=== PATIENT | female | born 1955 | race Caucasian/White ===

== ENCOUNTER 2020-03-31 09:38 | Inpatient (IN) | payer MEDICAID ==
[~2020-03-31] VITALS: Ht 154.9 cm; Wt 65.3 kg
[~2020-03-31 09:38] MED LIST: ACCU MC; ASPI-1886 PO; BENA5TAB13 PO; CHOL20001 PO; CLOP75TA PO; DYR50 PO; FURO-570 IVP; GLIP10TA3 PO; ISOS20TA13 PO; LIP80 PO; METF1000 PO; METF500T PO; METO-251 PO; NOVR SUBQ; ONDA-24 IVP
--- NOTE | 2020-03-31 09:38 | NUR ---
Patient BIBA ALS, transferred to bed 8. RN evaluating patient at bedside.
[2020-03-31 09:49] VITALS: BP 233/95
--- NOTE | 2020-03-31 09:49 | NUR ---
20G IV PLACED TO RT AC, BLOOD CULTURES AND LABS DRAWN AT THIS TIME.
--- NOTE | 2020-03-31 09:58 | NUR ---
65 Y/O FEMALE BIBA FROM DIALYSIS C/O SOB. PT STATES SOB STARTED PRIOR TO DIALYSIS BUT INCREASED DURING. PER EMS PT RECEIVED 10 MIN OF DIALYSIS TODAY. HAS SHUNT TO LT UPPER ARM. WAS GIVEN 2 NITRO IN ROUTE. SKIN WARM AND DIAPHORETIC. RR EVEN, DEEP, AND TACHYPNIC. HOB ELEVATED, POSITIONED FOR COMFORT. PLACED ON LIVE IN HOUSEKEEPER NANNY, PULSE OX, AND BP CUFF. MEDHX: DM, HTN, ESRD
[2020-03-31 09:59] LABS: BASOPHILS # (AUTO) 0.1 K/uL (0.00-0.22); BASOPHILS % (AUTO) 1.3 % (0.0-2.0); EOSINOPHILS # (AUTO) 0.1 K/uL (0-0.4); EOSINOPHILS % (AUTO) 1.1 % (0.0-4.0); HEMATOCRIT 38.8 % (36-48); HEMOGLOBIN 12.4 g/dL (12.0-16.0); LYMPHOCYTES % (AUTO) 15.4 % (20.5-51.1); MEAN CORPUSCULAR HEMOGLOBIN 32 pg (27-31); MEAN CORPUSCULAR HGB CONC 32 g/dL (33-37); MONOCYTES # (AUTO) 0.4 K/uL (0.8-1.0); MONOCYTES % (AUTO) 6.4 % (1.7-9.3); NEUTROPHILS # (AUTO) 4.9 K/uL (1.8-7.7); NEUTROPHILS % (AUTO) 75.8 % (42.2-75.2); PLATELET COUNT (AUTO) 158 K/uL (140-450); RED BLOOD CELL COUNT(AUTO) 3.91 MIL/uL (4.20-5.40); RED CELL DISTRIBUTION WIDTH 15.8 % (11.6-13.7); WHITE BLOOD COUNT (AUTO) 6.5 K/uL (4.8-10.8)
[2020-03-31] MEDS ORDERED: FUROSEMIDE 100 MG/10 ML VIAL IVP ONE (10:00)
--- NOTE | 2020-03-31 10:16 | NUR ---
COVID-19 SWAB COLLECTED FROM PT
[2020-03-31] MEDS ORDERED: RANEX500 PO (10:19)
[2020-03-31] MEDS ORDERED: FURO-570 PO (10:19)
[2020-03-31] MEDS ORDERED: SYN.05 PO (10:19)
[2020-03-31] MEDS ORDERED: GLIP5TAB4 PO (10:19)
[2020-03-31] MEDS ORDERED: FAMO-90 PO (10:19)
[2020-03-31] MEDS ORDERED: CINA60TA1 PO (10:19)
[2020-03-31] MEDS ORDERED: TRAM50TA1 PO (10:19)
[2020-03-31] MEDS ORDERED: ATOR10TA PO (10:19)
[2020-03-31] MEDS ORDERED: INSU100S22 SUBQ (10:19)
[2020-03-31] MEDS ORDERED: LACT1CAP59 PO (10:19)
[2020-03-31] MEDS ORDERED: PHO667 PO (10:19)
[2020-03-31] MEDS ORDERED: ASPI-1822 PO (10:19)
[2020-03-31] MEDS ORDERED: AMLO10TA PO (10:19)
[2020-03-31] MEDS ORDERED: LOSA25TA32 PO (10:19)
[2020-03-31] MEDS ORDERED: ISOS60TE3 PO (10:19)
[2020-03-31] MEDS ORDERED: MULT-1469 PO (10:19)
--- NOTE | 2020-03-31 10:19 | NUR ---
X-Ray at bedside.
--- NOTE | 2020-03-31 10:28 | NUR ---
DR CLAIRE AT BEDSIDE EXAMINING PT
[2020-03-31] MEDS ORDERED: cefTRIAXone 1,000 MG VIAL ONE (11:01)
--- NOTE | 2020-03-31 11:01 | NUR ---
WARM BLANKET PROVIDED. BED PLACED IN LOWEST POSITION. PT STATES FEELING MUCH BETTER AT THIS TIME.
[2020-03-31 11:50] LABS: ANION GAP 20.2 (8-16); CARBON DIOXIDE 24.8 mmol/L (21-32)
--- NOTE | 2020-03-31 11:52 | NUR ---
CREATININE 7.0--CRITICAL VALUE RECEIVED FROM LAB. DR CLAIRE MADE AWARE
[2020-03-31 11:57] LABS: ALBUMIN 4.1 g/dL (3.4-5.0); TOTAL BILIRUBIN 0.7 mg/dL (0.0-1.0)
--- NOTE | 2020-03-31 12:10 | NUR ---
SITTING UPRIGHT IN BED, AWAKE AND ALERT. RR EVEN AND UNLABORED ON OXYGEN. NO RESPIRATORY DISTRESS AT THIS TIME. VSS. WILL CONTINUE TO MONITOR
[2020-03-31] MEDS ORDERED: HYDROcodone/APAP 7.5/325 MG 1 TAB PO PRN (12:20)
[2020-03-31] MEDS ORDERED: DOCUSATE SODIUM 100 MG GELCAP PO PRN (12:20)
[2020-03-31] MEDS ORDERED: ONDANSETRON 4 MG/2 ML VIAL IM/IVP PRN (12:20)
--- NOTE | 2020-03-31 12:28 | NUR ---
PT VOMITING AT THIS TIME. FLORENCED MADE AWARE.
[2020-03-31 13:14] LABS: MAGNESIUM 2.6 mg/dL (1.8-2.4)
[2020-03-31 13:15] LABS: CHOL/HDL RATIO 3.2 (1-4.5); FREE T4 (FREE THYROXINE) 0.98 ng/dL (0.76-1.46); PHOSPHORUS 4.3 mg/dL (2.5-4.9); THYROID STIMULATING HORMONE 3.21 uIU/mL (0.34-3.74)
--- NOTE | 2020-03-31 13:50 | NUR ---
RECEIVED REPORT FROM ER NURSE FOR CONTINUITY OF CARE. PT IS AAOX4, UZBEK SPEAKING. COOPERATIVE AND ABLE TO MAKE NEEDS KNOWN. PT SKIN INTACT. PT ON NON-REBREATHER W/ 15L/MIN. O2 SAT @ 99%. IV ON THE RIGHT AC 20G SL. LEFT ARM AV SHUNT TO COMPREHEND DIANE FOR HD ACCESS. DISCUSSED POC WITH PT AND PT VERBALIZED UNDERSTANDING. ALL NEEDS MET. WILL ROUND FREQUENTLY ON PT.
--- NOTE | 2020-03-31 13:57 | NUR ---
Patient will be admitted to care of DR PERALES. Admited to DR PERALES. Will go to room 120A. Belongings list completed. Report to PAULA COTTRELL.
[2020-03-31 13:59] LABS: APPEARANCE,URINE CLEAR (CLEAR); BILIRUBIN,URINE NEGATIVE (NEGATIVE); BLOOD, URINE 1+ (NEGATIVE); COLOR,URINE YELLOW (YELLOW); LEUKOCYTE ESTERASE ,URINE NEGATIVE (NEGATIVE); NITRITE, URINE NEGATIVE (NEGATIVE); PH,URINE 8.5 (5.0-9.0); UGLUCOSE 2+ (NEGATIVE); WBC,URINE 0-5 /HPF (0-5)
[2020-03-31 14:00] LABS: BARBITURATE, URINE NEGATIVE ng/ml (NEG <=200); BENZODIAZEPINE, URINE NEGATIVE ng/mL (NEG <=200); CANNABINOID, URINE NEGATIVE ng/mL (NEG <=50); COCAINE, URINE NEGATIVE ng/mL (NEG <=300); OPIATE, URINE NEGATIVE ng/mL (NEG <=2000); PHENCYCLIDINE SCREEN,URINE NEGATIVE ng/mL (NEG <=25)
--- NOTE | 2020-03-31 15:40 | NUR ---
PT RESTING IN BED. ALL NEEDS MET. WILL CONTINUE TO ROUND FREQUENTLY ON PT.
[2020-03-31] MEDS ORDERED: BLOOD GLUCOSE MONITORING 1 DEV DEV FS SCH (16:30)
[2020-03-31] MEDS ORDERED: INSULIN LISPRO SLIDING SCALE 100 UNITS/ML VIAL SUBQ PRN (16:30)
[2020-03-31] MEDS ORDERED: DEXTROSE 50% 50 ML SYR IVP PRN ×2 (16:30→17:00)
[2020-03-31] MEDS ORDERED: ALBUTEROL HFA MDI 90 MCG/ACTUATION 8 GM INH PRN (17:00)
[2020-03-31] MEDS ORDERED: hydrALAZINE 20 MG/ML VIAL IVP PRN (17:15)
[2020-03-31] MEDS ORDERED: ENALAPRIL 10 MG TAB PO SCH (17:16)
--- NOTE | 2020-03-31 17:58 | NUR ---
PT RECEIVING HD. STABLE CONDITION. ALL NEEDS MET.
[2020-03-31] MEDS ORDERED: cloNIDine-TTS2 0.2 MG/24 HR 1 EA PATCH TD SCH (19:00)
--- NOTE | 2020-03-31 19:02 | NUR ---
WILL ENDORSE PT TO ADJUNCT PROFESSOR OF LAW FOR CONTINUITY OF CAR. PT IN STABLE CONDITION AT THIS TIME.
--- NOTE | 2020-03-31 19:30 | NUR ---
RECEIVED BEDSIDE REPORT FROM RONIT MITCHELL. PT IS AAOX4 SALVADOREAN SPEAKING. SAT WELL ON 15L NON REBREATHER MASK 99% RR 24. SKIN IS INTACT. PT WITH MARI AV SHUNT HD JUST COMPLETE 2.5L OUTPUT. IV ON RAC 20G SL. PT ON FALL RISK AMB WITH WALKER. C/C SOB PT WITH NON PRODUCTIVE COUGH. ON DROPLET PRECAUTION FOR COVID. POC DISCUSSED WITH PT. CALL LIGHT IS WITHIN REACH. WILL ROUND FREQUENTLY.
[2020-03-31 20:00] VITALS: BP 174/84
[2020-03-31] MEDS: BLOOD GLUCOSE MONITORING 1 DEV DEV FS SCH (20:14)
[2020-03-31] MEDS: CLOPIDOGREL 75 MG TAB PO SCH (20:14)
[2020-03-31] MEDS: ACETAMINOPHEN 325 MG TAB PO PRN (20:15)
[2020-03-31] MEDS: INSULIN LISPRO SLIDING SCALE 100 UNITS/ML VIAL SUBQ PRN (20:15)
[2020-03-31] MEDS ORDERED: ENALAPRIL 10 MG TAB ONE (20:20)
[2020-03-31] MEDS: FUROSEMIDE 40 MG TAB PO SCH (20:29)
--- NOTE | 2020-03-31 20:29 | NUR ---
ADMINISTERED WENDY MEDICATIONS PER ORDERS. ADMINISTERED PRN TYLENOL FOR CHEST SORENESS FROM COUGH. PT TOLERATED WELL. MED EDUCATION GIVEN. PT TOLERATED WELL. ALL SAFETY MEASURES ARE IN PLACE. WILL CONTINUE TO MONITOR.
--- NOTE | 2020-03-31 22:15 | NUR ---
PT IS SITTING UP IN BED WATCHING TV. PT DENIES PAIN. CALL LIGHT IS WITHIN REACH. WILL CONTINUE TO MONITOR.
[2020-04-01] VITALS: BP 142/99
--- NOTE | 2020-04-01 00:03 | NUR ---
VSS. ASSISTED PT WITH BEDPAN. ALL NEEDS MET AT THIS TIME. CALL LIGHT IS WITHIN REACH. WILL CONTINUE TO MONITOR.
--- NOTE | 2020-04-01 02:00 | NUR ---
MADE ROUNDS. PT WITH HOB ELEVATED 90 DEGREES. SAT WELL 100% ON 13L NRB. ALL NEEDS MET.CALL LIGHT IS WITHIN REACH. WILL CONTINUE TO MONITOR.
[2020-04-01 04:00] VITALS: BP 156/89
--- NOTE | 2020-04-01 04:00 | NUR ---
ASSISTED PT TO SIT AT EDGE OF BED. SAT WELL 100% VIA NRB 13L RR 23. VSS. CALL LIGHT IS WITHIN REACH. WILL CONTINUE TO MONITOR.
[2020-04-01 06:17] LABS: T4 (THYROXINE) 7.2 ug/dL (4.5-12.0)
[2020-04-01] MEDS ORDERED: CRUSHER, PILL MC ONE (06:24)
[2020-04-01] MEDS: BLOOD GLUCOSE MONITORING 1 DEV DEV FS SCH ×4 (06:26→21:00)
[2020-04-01] MEDS: LEVOTHYROXINE 0.05 MG TAB PO SCH (06:26)
[2020-04-01] MEDS: INSULIN LISPRO SLIDING SCALE 100 UNITS/ML VIAL SUBQ PRN ×2 (06:28→12:36)
--- NOTE | 2020-04-01 06:29 | NUR ---
BG 186 ADMINISTERED INSULIN PER SLIDING SCALE. WENDY MEDICATION GIVEN PER ORDER. PT TOLERATED WELL. ALL NEEDS MET. PT REMAINS ON NRB 13L SAT 100%. CALL LIGHT IS WITHIN REACH. WILL CONTINUE TO MONITOR.
--- NOTE | 2020-04-01 07:10 | NUR ---
RECEIVED BEDSIDE REPORT FROM VOCAL TEACHER NURSE FOR CONTINUITY OF CARE. PT IS AAOX4, LUX[place]BOURGISH SPEAKING, IS AWAKE AND IN BED, ABLE TO MAKE NEEDS KNOWN. RESPIRATIONS EVEN AND UNLABORED, WITH SAO2 AT 98% ON 12LPM NON-REBREATHER MASK. SKIN IS INTACT. PT WITH MARI AV SHUNT HD COMPLETED YESTERDAY WITH 2.5L OUTPUT. IV ON RAC 20G SL. PT ON FALL RISK AMB WITH WALKER. DROPLET ISOLATION IN PLACE AND OBSERVED BY ALL STAFF. POC DISCUSSED AND PATIENT VERBALIZES UNDERSTANDING. CALL LIGHT IS WITHIN REACH. WILL CONTINUE TO MONITOR.
--- NOTE | 2020-04-01 07:18 | NUR ---
GAVE BEDSIDE REPORT TO DAY RN. PT ENDORSED IN STABLE CONDITION.
[2020-04-01 07:22] LABS: BASOPHILS # (AUTO) 0.1 K/uL (0.00-0.22); BASOPHILS % (AUTO) 0.6 % (0.0-2.0); EOSINOPHILS % (AUTO) 0.1 % (0.0-4.0); HEMATOCRIT 38.4 % (36-48); HEMOGLOBIN 12.4 g/dL (12.0-16.0); LYMPHOCYTES # (AUTO) 0.4 K/uL (2.5-16.5); LYMPHOCYTES % (AUTO) 3.6 % (20.5-51.1); MEAN CORPUSCULAR HEMOGLOBIN 32 pg (27-31); MEAN CORPUSCULAR HGB CONC 32 g/dL (33-37); MEAN CORPUSCULAR VOLUME 97.5 fL (80-94); MONOCYTES # (AUTO) 0.8 K/uL (0.8-1.0); MONOCYTES % (AUTO) 6.2 % (1.7-9.3); NEUTROPHILS # (AUTO) 10.9 K/uL (1.8-7.7); NEUTROPHILS % (AUTO) 89.5 % (42.2-75.2); PLATELET COUNT (AUTO) 164 K/uL (140-450); RED BLOOD CELL COUNT(AUTO) 3.94 MIL/uL (4.20-5.40); RED CELL DISTRIBUTION WIDTH 15.4 % (11.6-13.7); WHITE BLOOD COUNT (AUTO) 12.2 K/uL (4.8-10.8)
--- NOTE | 2020-04-01 07:29 | NUR ---
PATIENT HAS BEEN SCREENED AND CATEGORIZED MODERATE NUTRITION RISK. PATIENT WILL BE SEEN WITHIN 3-5 DAYS OF ADMISSION. 04/03/20 04/05/[address]
[2020-04-01 07:46] LABS: ANION GAP 12.9 (8-16); CARBON DIOXIDE 30.9 mmol/L (21-32); POTASSIUM 3.8 mmol/L (3.5-5.1)
[2020-04-01 08:00] VITALS: BP 154/97
[2020-04-01] MEDS: FAMOTIDINE 20 MG TAB PO SCH (08:09)
[2020-04-01] MEDS: AZITHROMYCIN 250 MG TAB PO SCH (08:10)
[2020-04-01] MEDS: FUROSEMIDE 40 MG TAB PO SCH ×2 (08:10→17:19)
--- NOTE | 2020-04-01 08:10 | NUR ---
MORNING MEDICATIONS GIVEN. NO SIGNS OF DISTRESS NOTED. V/S TAKEN BP 154/97, HR 110, SAO2 100% WITH 12LPM O2 VIA NON-REBREATHER MASK, TEMP 99.3F, RR 21. PATIENT VERBALIZES NO PAIN. HIGH BLOOD PRESSURE AND HR MEDICATED. WILL CONTINUE TO MONITOR.
[2020-04-01] MEDS: CLOPIDOGREL 75 MG TAB PO SCH ×2 (08:11→20:46)
[2020-04-01] MEDS: ASPIRIN 81 MG TAB.CHEW PO SCH (08:11)
[2020-04-01] MEDS: glipiZIDE 5 MG TAB PO SCH (08:11)
[2020-04-01] MEDS: amLODIPine 5 MG TAB PO SCH (08:11)
[2020-04-01] MEDS: LOSARTAN 25 MG TAB PO SCH (08:12)
[2020-04-01] MEDS: ATORVASTATIN 20 MG TAB PO SCH (08:12)
--- NOTE | 2020-04-01 08:30 | NUR ---
PATIENT OFF UNIT OF VQ SCAN PROCEDURE. NO SIGNS OF DISTRESS NOTED. WILL CONTINUE TO MONITOR.
[2020-04-01] MEDS: INSULIN LANTUS 100 UNITS/ML 10 ML VIAL SUBQ SCH (08:35)
[2020-04-01 09:04] LABS: CREATININE 5.3 mg/dL (0.6-1.3)
--- NOTE | 2020-04-01 10:15 | NUR ---
RECEIVED NEGATIVE COVID RESULT. DROPLET ISOLATION REMOVED AND STANDARD PRECAUTIONS IN PLACE. IS AWARE. WILL CONTINUE TO MONITOR.
--- NOTE | 2020-04-01 10:46 | NUR ---
PROFESSIONAL DEVELOPMENT DIRECTOR NOTE: SW CONTACTED PATIENT'S CELL PHONE [phone]. PATIENT STATED THAT SHE ONLY SPEAKS NEPALI. SW STATED HE WOULD CALL HER BACK WITH AN SALAD CHEF. COLLEEN CONTACTED PATIENT WITH SALAD CHEF DEEPIKA [id number]. PATIENT REFUSED TO ANSWER THE PHONE. SW WILL FOLLOW UP.
[2020-04-01 12:00] VITALS: BP 128/96
--- NOTE | 2020-04-01 12:15 | NUR ---
PATIENT CLEANED AND CHANGED, NO SIGNS OF DISTRESS NOTED. V/S TAKEN AND IS WNL. WILL CONTINUE TO MONITOR.
--- NOTE | 2020-04-01 12:34 | NUR ---
2 UNITS OF INSULIN GIVEN FOR BLOOD GLUCOSE OF 161. V/S TAKEN AND IS WNL. PATIENT VERBALIZES NO PAIN, NO SIGNS OF DISTRESS NOTED. WILL CONTINUE TO MONITOR.
[2020-04-01 16:00] VITALS: BP 129/55
--- NOTE | 2020-04-01 17:15 | NUR ---
NO INSULIN COVERAGE NEEDED FOR BLOOD GLUCOSE OF 81. NO SIGNS OF DISTRESS NOTED AND PATIENT VERBALIZES NO PAIN. AFTERNOON MEDICATIONS GIVEN. WILL CONTINUE TO MONITOR.
--- NOTE | 2020-04-01 19:10 | NUR ---
ENDORSED TO REAL ESTATE INSTRUCTOR NURSE FOR CONTINUITY OF CARE.
[2020-04-01 20:00] VITALS: BP 116/83
--- NOTE | 2020-04-01 20:00 | NUR ---
RECEIVED PT FROM JOE RN PT FRENCH SPEAKERAAOX4 ON BED REST ON 12 LTS NON RE BREATHING MASK 100% AV SHUNT FOR HD ONLEFT UA AND IV ON RT ARM INFUSING WELL TKO ON TELE ST INITIAL ASSESSMENT DONE
--- NOTE | 2020-04-01 21:30 | NUR ---
BLOOD SUGAR TEST 81 SNACK IS PROVIDED
[2020-04-02] VITALS: BP 138/85
--- NOTE | 2020-04-02 | NUR ---
PT MONITORING CLOSE , SLEEPING WELL, ON TELE ST
[2020-04-02 04:00] VITALS: BP 130/85
--- NOTE | 2020-04-02 04:00 | NUR ---
SPONGE BATH GIVEEN LINEN CHANGED ON TELE ST , PT WILL HAVE HD TODAY DIALYSIS NURSE ALREADY AWARE
[2020-04-02] MEDS: LEVOTHYROXINE 0.05 MG TAB PO SCH (06:48)
--- NOTE | 2020-04-02 07:00 | NUR ---
BLOOD SUGAR TEST 147 PT REMAIN STABLE AT THIS TIME AND PT WILL BE ENDORSED TO DAY SHIFT NURSE
[2020-04-02] MEDS: BLOOD GLUCOSE MONITORING 1 DEV DEV FS SCH ×4 (07:09→21:45)
[2020-04-02 07:29] LABS: BASOPHILS # (AUTO) 0.1 K/uL (0.00-0.22); BASOPHILS % (AUTO) 0.7 % (0.0-2.0); EOSINOPHILS % (AUTO) 0.3 % (0.0-4.0); HEMOGLOBIN 11.8 g/dL (12.0-16.0); LYMPHOCYTES # (AUTO) 0.4 K/uL (2.5-16.5); MEAN CORPUSCULAR HEMOGLOBIN 32 pg (27-31); MEAN CORPUSCULAR HGB CONC 33 g/dL (33-37); MEAN CORPUSCULAR VOLUME 97.3 fL (80-94); MONOCYTES # (AUTO) 0.5 K/uL (0.8-1.0); MONOCYTES % (AUTO) 5.1 % (1.7-9.3); NEUTROPHILS # (AUTO) 9.6 K/uL (1.8-7.7); NEUTROPHILS % (AUTO) 89.9 % (42.2-75.2); PLATELET COUNT (AUTO) 155 K/uL (140-450); RED CELL DISTRIBUTION WIDTH 15.5 % (11.6-13.7); WHITE BLOOD COUNT (AUTO) 10.6 K/uL (4.8-10.8)
--- NOTE | 2020-04-02 07:30 | NUR ---
RECEIVED PT ON BED AAOX4. NO SOB NOTED. NO C/O PAIN AT THIS TIME. IV TO RAC PATENT AND INTACT. CHEST, DIMINISHED AIR ENTRY TO THE BASES, PT ON 12 LITERS NON-REBREATHER WITH O2 SATS AT 95%. ABDOMEN SOFT, BOWEL SOUNDS PRESENT. NO EDEMA NOTED. INSTRUCTED PT TO CALL FOR ASSISTANCE, CALL LIGHT WITHIN REACH, VERBALIZED UNDERSTANDING.
[2020-04-02 07:50] LABS: ANION GAP 20.2 (8-16); CARBON DIOXIDE 23.7 mmol/L (21-32); POTASSIUM 3.9 mmol/L (3.5-5.1)
[2020-04-02 08:00] VITALS: BP 139/87
[2020-04-02 08:08] LABS: CREATININE 6.6 mg/dL (0.6-1.3)
[2020-04-02] MEDS: FUROSEMIDE 40 MG TAB PO SCH ×2 (09:00→17:02)
[2020-04-02] MEDS: LOSARTAN 25 MG TAB PO SCH (09:00)
[2020-04-02] MEDS: amLODIPine 5 MG TAB PO SCH (09:00)
[2020-04-02] MEDS: INSULIN LANTUS 100 UNITS/ML 10 ML VIAL SUBQ SCH (09:00)
[2020-04-02] MEDS: glipiZIDE 5 MG TAB PO SCH (09:33)
[2020-04-02] MEDS: AZITHROMYCIN 250 MG TAB PO SCH (09:33)
[2020-04-02] MEDS: ATORVASTATIN 20 MG TAB PO SCH (09:33)
[2020-04-02] MEDS: FAMOTIDINE 20 MG TAB PO SCH (09:33)
[2020-04-02] MEDS: ASPIRIN 81 MG TAB.CHEW PO SCH (09:33)
[2020-04-02] MEDS: CLOPIDOGREL 75 MG TAB PO SCH ×2 (09:33→21:44)
[2020-04-02] MEDS: ACETAMINOPHEN 325 MG TAB PO PRN (09:34)
--- NOTE | 2020-04-02 11:29 | NUR ---
FOLLOWED UP DURAN OF [facility]. STATED A NURSE WILL BE HERE LATER TODAY.
[2020-04-02 12:00] VITALS: BP 170/78
--- NOTE | 2020-04-02 14:03 | NUR ---
DC PLANN[age] YRS OLD FEMALE PATIENT WAS ADMITTED FROM HOME WITH A DX OF SOB, ESRD D/OANS. PT HAS A HX OF ESRD ON HD TTHS, HEART FAILURE DM AND HLD. CXR SHOWED PULMONARY EDEMA CHF . VQ SCAN SHOWED NO PE. ADMINISTERED IVF , IV ABX ROCEPHIN AND AZITHROMYCIN ,RT PROTOCOL. COVID TEST NEGATIVE . CONSULTED WITH PULMO ,CARDI AND ENVIRONMENTAL SERVICES WORKER. DC PLAN TO GO BACK HOME WHEN STABLE. Addendum: 04/05/20 at 1124 by Kim Cohn CM SPOKE TO NURSE KYEES AT [facility] [phone] TO NOTIFY THAT PATIENT WILL BE DISCHARGED TODAY
[2020-04-02 16:00] VITALS: BP 178/79
--- NOTE | 2020-04-02 16:16 | NUR ---
CHANGED FROM NRB AT 15L TO OXYMIZER AT 9L TO TITRATE O2 SAT 88-92% RN GEO NOTIFIED
--- NOTE | 2020-04-02 17:45 | NUR ---
ON GOING HD AT THE BEDSIDE. PT RESTING. NO COMPLAINTS MADE. ENDORSED TO KAREN-RN FOR CONTINUITY OF CARE.
--- NOTE | 2020-04-02 17:50 | NUR ---
RECEIVED REPORT FROM DAY SHIFT RNGEO. PATIENT CURRENTLY GETTING DIALYSIS, COMB MACHINE OPERATOR AT BEDSIDE. BLOOD SUGAR 164, NO COVERAGE GIVEN AT THIS TIME BECAUSE PATIENT SLEEPY FROM DIALYSIS AND DOES NOT WANT TO EAT. IV SITE INTACT, ASYMPTOMATIC, INFUSING IVF WELL. RESPIRATIONS EVEN AND UNLABORED, NO S/S OF DISTRESS OR SOB NOTED. BED IN LOWEST POSITION WITH ALARM AND BRAKES ON, CALL LIGHT WITHIN REACH, WILL CONTINUE TO MONITOR PATIENT.
--- NOTE | 2020-04-02 19:10 | NUR ---
ENDORSED REPORT TO [employer] NURSE TEJAL, PATIENT STILL GETTING DIALYSIS. CONTRACT CLERK AUTOMOBILE AT BEDSIDE.
[2020-04-02 20:00] VITALS: BP 184/74
--- NOTE | 2020-04-02 20:10 | NUR ---
PT IS STABLE AND UNDER DIALYSIS.BP IS HIGH 187/73.WILL RECHECK LATER AND IF NEEDED ADMINISTER MED.NO C/O PAIN NOW.RESP.UNLABORED W/ O2 AT 9L/NRB MASK.LUNGS DIMINISHED.WILL CONTINUE MONITORING.
[2020-04-02] MEDS: INSULIN LISPRO SLIDING SCALE 100 UNITS/ML VIAL SUBQ PRN (21:46)
--- NOTE | 2020-04-02 23:00 | NUR ---
TOOK OUT HYDRALAZINE FOR BP.[id number]=310/71.DID NOT GIVE MED AND RETURNED IT.
[2020-04-03] VITALS: BP 165/75
--- NOTE | 2020-04-03 01:12 | NUR ---
CONDITION STABLE.AT MN TK=216/75.RECHECKED =140/72. NO C/O PAIN. 3 LIT.TOOK OUT FROM DIALYSIS.HR IS ST.
[2020-04-03 04:00] VITALS: BP 145/75
--- NOTE | 2020-04-03 04:30 | NUR ---
SLEPT WELL HR IS SR.NO DISTRESS NOTED AT THIS TIME.RESP.UNLABORED W/O2
[2020-04-03] MEDS: LEVOTHYROXINE 0.05 MG TAB PO SCH (06:42)
[2020-04-03] MEDS: BLOOD GLUCOSE MONITORING 1 DEV DEV FS SCH ×4 (06:42→21:06)
--- NOTE | 2020-04-03 07:08 | NUR ---
HL=513.DID NOT COVER.PT IS STABLE W/ NO S/S OF ANY DISTRESS.
--- NOTE | 2020-04-03 07:30 | NUR ---
RECEIVED PT ON BED AAOX4. NO SOB NOTED. NO C/O PAIN AT THIS TIME. IV TO RAC PATENT AND INTACT. CHEST, DIMINISHED AIR ENTRY TO THE BASES, PT ON 9 LITERS OXYMIZER WITH O2 SATS AT 95%. ABDOMEN SOFT, BOWEL SOUNDS PRESENT. NO EDEMA NOTED. INSTRUCTED PT TO CALL FOR ASSISTANCE, CALL LIGHT WITHIN REACH, VERBALIZED UNDERSTANDING.
[2020-04-03 08:00] VITALS: BP 179/84
[2020-04-03 08:14] LABS: ANION GAP 13.9 (8-16); CARBON DIOXIDE 29.4 mmol/L (21-32); POTASSIUM 3.3 mmol/L (3.5-5.1)
[2020-04-03 08:19] LABS: BASOPHILS % (AUTO) 0.4 % (0.0-2.0); EOSINOPHILS # (AUTO) 0.2 K/uL (0-0.4); EOSINOPHILS % (AUTO) 2.3 % (0.0-4.0); HEMATOCRIT 32.5 % (36-48); HEMOGLOBIN 10.6 g/dL (12.0-16.0); MEAN CORPUSCULAR HEMOGLOBIN 32 pg (27-31); MEAN CORPUSCULAR HGB CONC 33 g/dL (33-37); MEAN CORPUSCULAR VOLUME 97.4 fL (80-94); MONOCYTES # (AUTO) 0.5 K/uL (0.8-1.0); MONOCYTES % (AUTO) 5.9 % (1.7-9.3); NEUTROPHILS # (AUTO) 6.8 K/uL (1.8-7.7); PLATELET COUNT (AUTO) 173 K/uL (140-450); RED BLOOD CELL COUNT(AUTO) 3.34 MIL/uL (4.20-5.40); RED CELL DISTRIBUTION WIDTH 15.6 % (11.6-13.7); WHITE BLOOD COUNT (AUTO) 8.5 K/uL (4.8-10.8)
[2020-04-03 08:20] LABS: CREATININE 4.9 mg/dL (0.6-1.3)
[2020-04-03] MEDS: INSULIN LANTUS 100 UNITS/ML 10 ML VIAL SUBQ SCH (09:00)
[2020-04-03] MEDS: LOSARTAN 25 MG TAB PO SCH ×3 (09:28→21:06)
[2020-04-03] MEDS: FUROSEMIDE 40 MG TAB PO SCH ×2 (09:28→17:01)
[2020-04-03 09:29] LABS: LYMPHOCYTES % (AUTO) 11.4 % (20.5-51.1)
[2020-04-03] MEDS: ASPIRIN 81 MG TAB.CHEW PO SCH (09:29)
[2020-04-03] MEDS: amLODIPine 5 MG TAB PO SCH (09:29)
[2020-04-03] MEDS: VIT-B COMP/VIT-C/FOLIC ACID 1 TAB PO SCH (09:29)
[2020-04-03] MEDS: FAMOTIDINE 20 MG TAB PO SCH (09:30)
[2020-04-03] MEDS: CLOPIDOGREL 75 MG TAB PO SCH ×2 (09:30→21:06)
[2020-04-03] MEDS: AZITHROMYCIN 250 MG TAB PO SCH (09:30)
[2020-04-03] MEDS: ATORVASTATIN 20 MG TAB PO SCH (09:34)
[2020-04-03] MEDS: glipiZIDE 5 MG TAB PO SCH (09:34)
[2020-04-03 12:00] VITALS: BP 186/73
[2020-04-03] MEDS: INSULIN LISPRO SLIDING SCALE 100 UNITS/ML VIAL SUBQ PRN ×3 (12:26→21:07)
--- NOTE | 2020-04-03 13:30 | NUR ---
SPOKE WITH RENEE AND NOTIFIED HER REGARDING THE HEMODIALYSIS ORDERED FOR TOMORROW.
--- NOTE | 2020-04-03 13:45 | NUR ---
DISCHARGE INSTRUCTIONS AND E-SCRIPT GIVEN TO PT WHICH VERBALIZED FULL UNDERSTANDING OF THE INSTRUCTIONS GIVEN AND THE NEED TO FOLLOW UP WITH PCP IN 3-5 DAYS AFTER DISCHARGE. ARM BANDS AND IV REMOVED, CANNULA TIP INTACT. DRESSING TO PREVIOUS CHEST TUBE SITE AND LUMBAR SPINE SURGICAL INCISIONS DRESSING DRY, CLEAN AND INTACT. PT REFUSED TO HAVE PHOTOS TAKEN ON THE SURGICAL INCISIONS. PT WHEELED TO THE [facility] LOB IN STABLE CONDITION. NO COMPLAINTS MADE. PT IS D/C HOME WITH FAMILY. Addendum: 04/03/20 at 1852 by Zulay Clifton RN DISREGARD ABOVE NOTES, WRONG PT.
[2020-04-03 16:00] VITALS: BP 141/82
--- NOTE | 2020-04-03 18:30 | NUR ---
DR. JOHNSON CAME TO SEE PT WITH NEW ORDERS.
--- NOTE | 2020-04-03 18:53 | NUR ---
PT RESTING. NO SOB NOTED. NO COMPLAINTS MADE. WILL ENDORSE TO NEXT SHIFT NURSE FOR CONTINUITY OF CARE.
[2020-04-03 20:00] VITALS: BP 131/62
[2020-04-03] MEDS ORDERED: MICAFUNGIN SODIUM 100 MG in NACL 0.9% 100 ML IV SCH (20:00)
--- NOTE | 2020-04-03 20:05 | NUR ---
AWAKE,ALERT AND ORIENTED.RESP.UNLABORED W/O2 AT 4L/OXIMIZER.LUNGS DIMINISHED.SL PATENT.CALL LIGHT IN REACH.TELE SHOWING SR.NO C/O PAIN AT THIS TIME. WILL CONTINUE MONITORING.
[2020-04-04] VITALS: BP 152/67
--- NOTE | 2020-04-04 00:10 | NUR ---
CHANGED SITE OF IV LINE.SHE WILL HAVE STRESS TEST IN AM [facility] WILL START TO GIVE HER 1ST INJECTION AT 1200 NOON IN AM.ALSO ORDERED [facility] IV TO START TONIGHT.I COULD NOT FIND PHARMACIST SWITCHBOARD INSPECTOR CAME FOR ANOTHER REASON SUPER VISOR ASKED HIM BUT COULD NOT FIND IT IN PHARMACY TOO.SO WILL START IN AM.CONDITION STABLE.HR IS SR.NO DISTRESS NOTED.
[2020-04-04 04:00] VITALS: BP 144/75
--- NOTE | 2020-04-04 05:40 | NUR ---
SHE IS NPO AFTER MN.WILL HAVE DIALYSIS AND [place] STESS TEST TODAY.LP=[id number] THIS AM RADHA NOT COVER DUE TO NPO.
[2020-04-04] MEDS: LEVOTHYROXINE 0.05 MG TAB PO SCH (07:25)
[2020-04-04] MEDS: BLOOD GLUCOSE MONITORING 1 DEV DEV FS SCH ×4 (07:25→20:47)
[2020-04-04] MEDS: FUROSEMIDE 40 MG TAB PO SCH ×2 (09:00→17:50)
[2020-04-04] MEDS: ATORVASTATIN 20 MG TAB PO SCH (09:00)
[2020-04-04] MEDS: glipiZIDE 5 MG TAB PO SCH (09:00)
[2020-04-04] MEDS: VIT-B COMP/VIT-C/FOLIC ACID 1 TAB PO SCH (09:00)
[2020-04-04] MEDS: CLOPIDOGREL 75 MG TAB PO SCH ×2 (09:00→20:25)
[2020-04-04] MEDS: ASPIRIN 81 MG TAB.CHEW PO SCH (09:00)
[2020-04-04] MEDS: LOSARTAN 25 MG TAB PO SCH ×2 (09:00→20:42)
[2020-04-04] MEDS: INSULIN LANTUS 100 UNITS/ML 10 ML VIAL SUBQ SCH (09:00)
[2020-04-04] MEDS: FAMOTIDINE 20 MG TAB PO SCH (09:00)
[2020-04-04] MEDS: amLODIPine 5 MG TAB PO SCH (09:00)
--- NOTE | 2020-04-04 09:19 | NUR ---
PATIENT ONGOING WITH DIALYSIS, I OFFER TO GIVE HER MEDICATION, PER PATIENT SHE WILL TAKE IT LATER, PATIENT ALERT, AWAKE, NO SOB NOTED, ON 7L O2 PER NASAL CANNULA, WILL CHECK PATIENT AGAIN LATER.
[2020-04-04 09:29] VITALS: BP 161/74
[2020-04-04 11:41] VITALS: BP 121/58
--- NOTE | 2020-04-04 12:30 | NUR ---
PATIENT KEEP NPO FOR [place] STRESS TEST, IV INFILTRATED, CALLED ER NURSE TO PUT IT IN. ON HER RIGHT AC G 18 INTACT. PATIENT WENT TO [place] ALERT AWAKE ORIENTED, NOT IN ANY DISTRESS NOTED.
[2020-04-04] MEDS ORDERED: REGADENOSON 0.4 MG/5 ML SYR IV SCH (15:00)
[2020-04-04 16:00] VITALS: BP 143/97
--- NOTE | 2020-04-04 16:00 | NUR ---
PATIENT BACK FROM [facility], NO C/O PAIN, ROOM CHANGED TO 106A.
[2020-04-04] MEDS: MICAFUNGIN SODIUM 100 MG in NACL 0.9% 100 ML IV SCH (16:55)
[2020-04-04] MEDS: INSULIN LISPRO SLIDING SCALE 100 UNITS/ML VIAL SUBQ PRN ×2 (16:55→20:27)
--- NOTE | 2020-04-04 19:19 | NUR ---
REPORT GIVEN TO PAULA HIGHTOWER AT BEDSIDE FOR CONTINUITY OF CARE.
--- NOTE | 2020-04-04 19:30 | NUR ---
RECEIVED REPORT FORM MAINOR MITCHELL DAYSHIFT NURSE AT BEDSIDE FOR CONTINUITY OF CARE, PT IN STABLE CONDITION.
[2020-04-04 20:00] VITALS: BP 152/76
--- NOTE | 2020-04-04 20:00 | NUR ---
PT SITTING UP IN BED JOY PAIN AT THIS TIME. IV SITE ON RAC INTACT AND ASYMPTOMATIC. PT LAV SHUNT ON LEFT UPPER B/P P ARM INTACT THRILL AND BRUIT FELT. PT AMBULATED WITH ASSISTANCE TO TOILET, ALL FALLS PRECAUTIONS IN PLACE V/S A 02 S FOLLOWS: T 99.2 16 B/P 152/76 02 100/% WITH 7 LITERS VIA OXYMIZER.
--- NOTE | 2020-04-04 21:00 | NUR ---
PT GIVEN SCHEDULED MEDS OF COZAAR, AND PLAVIX. EDUCATION REGARDING MEDICATION PROVIDED AT BEDSIDE. THE FINGERSTICK IS 336, 8 UNITS DUE PER S/S.PT SAID THAT SHE ONLY WANTED 2 UNITS BECAUSE SHE FEARED THAT HER BLOOD SUGAR WILL DROP TOO QUICKLY. REINFORCED TO PT THAT 8 UNITS OF HUMALOG COVERAGE WAS ORDERED BY MD PER S/S. PT REQUESTED A SANDWICH AND THAT HER SUGAR BE CHECKED AROUND 11PM. RN AGREED.
--- NOTE | 2020-04-04 23:15 | NUR ---
PT FINGERSTICK RECHECK WAS 161.
[2020-04-05] VITALS: BP 169/69
--- NOTE | 2020-04-05 00:30 | NUR ---
PT SITTING UP IN BED V/S FOLLOWS: T 99.3 P 80 R 16 B/P 178/76 02 91% ON 7 LITERS OXYMIZER. PT ENCOURAGED TO WEAR OXYMIZER CORRECTLY. ALL REQUESTED NEEDS ATTENDED BY STAFF. PT REMAINS NPO AT THIS TIME. SPOKE WITH MD PERALES WHO SAID THAT HE WAS GIVING PT OVER TO MD ROBERT AND PREFERS HE WAIT FOR HER TO CHANGE DIET ORDER IN THE AM. WILL ENDORSE TO AM SHIFT.
[2020-04-05 04:00] VITALS: BP 190/68
--- NOTE | 2020-04-05 04:00 | NUR ---
Pt sitting up in bed resting with eyes closed no c/o voiced by patent. V/S FOLLOWSl T 97.5 P 100 R 18 B/P 190/68 02 95% P 100. WILL PROVIDE APPRESSOILINE IVP FOR HTN. ALL FALLS PRECAUTIONS IN PLACE.
[2020-04-05] MEDS: LEVOTHYROXINE 0.05 MG TAB PO SCH (05:48)
--- NOTE | 2020-04-05 06:15 | NUR ---
HYDRAZALINE IVP GIVEN FOR HTN. PT FINGERSTICK IS 163, SHE WAS GIVEN 2 UNITS OF HUMALOG. PT ALSO GIVEN ORDERED SYNTHROID. EDUCATION REGARDING MEDICATION AND DIAGNOSIS PROVIDED AT BEDSIDE.
[2020-04-05] MEDS: INSULIN LISPRO SLIDING SCALE 100 UNITS/ML VIAL SUBQ PRN ×2 (06:16→16:50)
[2020-04-05 07:15] VITALS: BP 166/74
--- NOTE | 2020-04-05 07:15 | NUR ---
Received report from pm nurse Corinne. Pt resting in bed, no signs of distress. Respirations even & nonlabored on O2 @ 7Lpm via oxymizer.
[2020-04-05] MEDS: BLOOD GLUCOSE MONITORING 1 DEV DEV FS SCH ×3 (07:47→16:16)
[2020-04-05] MEDS: CLOPIDOGREL 75 MG TAB PO SCH (08:16)
[2020-04-05] MEDS: ATORVASTATIN 20 MG TAB PO SCH (08:16)
[2020-04-05] MEDS: FAMOTIDINE 20 MG TAB PO SCH (08:16)
[2020-04-05] MEDS: VIT-B COMP/VIT-C/FOLIC ACID 1 TAB PO SCH (08:17)
[2020-04-05] MEDS: glipiZIDE 5 MG TAB PO SCH (08:17)
[2020-04-05] MEDS: amLODIPine 5 MG TAB PO SCH (08:17)
[2020-04-05] MEDS: FUROSEMIDE 40 MG TAB PO SCH ×2 (08:17→16:16)
[2020-04-05] MEDS: LOSARTAN 25 MG TAB PO SCH (08:17)
[2020-04-05] MEDS: ASPIRIN 81 MG TAB.CHEW PO SCH (08:17)
--- NOTE | 2020-04-05 09:00 | NUR ---
Lantus insulin held d/t pt still NPO. Paged physician for diet order.
[2020-04-05] MEDS: MICAFUNGIN SODIUM 100 MG in NACL 0.9% 100 ML IV SCH (10:43)
[2020-04-05] MEDS: INSULIN LANTUS 100 UNITS/ML 10 ML VIAL SUBQ SCH (11:26)
--- NOTE | 2020-04-05 11:38 | NUR ---
Lantus insulin 30units SQ administered. Lunch tray provided to patient.
[2020-04-05 12:00] VITALS: BP 163/51
--- NOTE | 2020-04-05 13:00 | NUR ---
Eveline from Dialysis notified via telephone call re: Dr. Biggs's order for hemodialysis tx tomorrow.
--- NOTE | 2020-04-05 15:21 | NUR ---
RD INITIAL ASSESSMENT COMPLETED PLEASE REFER TO NUTRITION ASSESSMENT UNDER CARE ACTIVITY FOR ESTIMATED NUTRITIONAL NEEDS. CONTINUE CURRENT DIET TOLERATED RD TO FOLLOW-UP IN 3-5 DAYS PATIENT IS MODERATE RISK. DOMENIC LEOS RD
[2020-04-05 16:00] VITALS: BP 124/67
[2020-04-05] MEDS ORDERED: LOSA25TA1 PO (17:59)
--- NOTE | 2020-04-05 18:30 | NUR ---
Written verbal and discharge instructions provided to patient who verbalized understanding re: f/u with PCP within 5days, and increase in losartan dose to 25mg bid. Right AC IV discontinued, cannula intact, site covered with dry dressing. Patient states she will call family to transport her home.
--- NOTE | 2020-04-05 19:30 | NUR ---
PT READY TO GO HOME STEPHANIE'S DAUGHTER ON THE [address] READY TO PICK PT AND TAKE HER AT HOME , AND ALL DISCHARGE PAPER ALREADY SIGNED AL ALL DISCHARGE PROTOCOL DONE . REBECCA OVIEDO TAKE PT ON WHEELCHAIR ON STABLE CONDITION AND VSS
[2020-04-07] MEDS ORDERED: cloNIDine-TTS2 0.2 MG/24 HR 1 EA PATCH TD SCH (09:00)
== END 2020-04-05 19:45 | disposition home or self-care (01) | DRG 720 ==
LOC: MED 09:38 → MTU 12:18
PROVIDERS: ADMIT Family Medicine; ATTEND Family Medicine
DX: B37.7 Candidal sepsis (principal); J18.9 Pneumonia, unspecified organism; N18.6 End stage renal disease; Z99.2 Dependence on renal dialysis; I50.43 Acute on chronic combined systolic (congestive) and diastolic (congestive) heart failure; I16.1 Hypertensive emergency; I13.2 Hypertensive heart and chronic kidney disease with heart failure and with stage 5 chronic kidney disease, or end stage renal disease; I25.10 Atherosclerotic heart disease of native coronary artery without angina pectoris; E78.5 Hyperlipidemia, unspecified; Z20.828 Contact with and (suspected) exposure to other viral communicable diseases; E03.9 Hypothyroidism, unspecified; E78.00 Pure hypercholesterolemia, unspecified; J44.0 Chronic obstructive pulmonary disease with (acute) lower respiratory infection; Z03.818 Encounter for observation for suspected exposure to other biological agents ruled out; N17.0 Acute kidney failure with tubular necrosis
CPT/HCPCS: 36415; 71045; 78582; 80048; 80053; 80305; 81001; 82150; 82948; 83036; 83605; 83690; 83735; 83880; 84100; 84436; 84439; 84443; 84479; 84484; 85025; 85610; 85730; 87040; 87081; 93005; 93017; 96365; 96375; 99285; A9500; A9502; J0360; J0696; J1815; J1940; J2248; J2405; J2785; J7030; J7060; Q0092; U0003-CS